=== PATIENT | female | born 1980 | race Caucasian/White ===

== ENCOUNTER 2025-03-13 10:06 | Outpatient (AMB) | payer BC, SELFPAY ==
--- NOTE | 2025-03-13 10:10 | MHC.PC.OV ---
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 She has no acute concerns today. CV: Blood pressure today in the office is 112/72. Checks blood pressure at home and it is about the same. She is on lisinopril 10 mg. No chest pain or shortness on breath. Breast: Following in April 2025 for mammos. Following with breast center [facility] Interpreter: follows with [facility]. Sees Dr. Weber routinely 12/25 annual. [facility], [facility] Medical History (Updated 01/04/25 @ 12:49 by Flavia Olivares) H/O mammogram Dyslipidemia Hypertension Surgical History (Updated 01/04/25 @ 12:49 by Flavia Olivares) History of knee surgery History of carpal tunnel release Hx of tonsillectomy Family History (System 01/04/25 @ 12:49 by Flavia Olivares) Father Polycythemia Brother Asthma Thyroid cancer Social History (System 01/04/25 @ 12:49 by Flavia Olivares) Housing: House Alcohol intake: current Patient Tobacco Use Status: Never used Tobacco e-Cigarette/Vaping Use: Never Used Second Hand Smoke Exposure: Yes (past) service: No Current occupational status: employed 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 How often do you have a drink containing alcohol?: 2-3 times a week 2. How many drinks containing alcohol do you have on a typical day when you are drinking?: 1 or 2 3. How often do you have six or more drinks on one occasion?: Never Total Score: 3 KARTHIKEYAN-7 AMB Questionnaire KARTHIKEYAN-7 Date KARTHIKEYAN - 7 assessed: 09/05/24 Source: Developed by Drs. Kirk Gunter, Patti Vázquez, Elijah Toledo and colleagues, with an educational bonilla from [employer]. Physical exam (Primary Care) Vital Signs: Last Vital Signs Pulse 82 03/13/25 10:16 Resp 14 03/13/25 10:16 BP 112/72 03/13/25 10:16 Pulse Ox 98 03/13/25 10:16 Oxygen Delivery Method Room Air 03/13/25 10:16 Oxygen Flow Rate 168.4 03/13/25 10:16 BMI result Body Mass Index 28.9 Tobacco/Smoking Status: Tobacco use Status Tobacco use date assessed 03/13/25 03/13/25 10:18 Patient Tobacco Use Status Never used Tobacco 03/13/25 10:18 e-Cigarette/Vaping Use Never Used 03/13/25 10:18 Thrive Assessment: Date of Thrive Assessment Date Thrive assessed 09/05/24 03/13/25 10:18 Const Orientation/consciousness: patient oriented x3 HENMT Ears: hearing grossly normal bilaterally Neck Thyroid: Thyroid normal Lymphatic: no lymphadenopathy noted Resp Auscultation: clear to auscultation bilaterally Cardio Rate: regular rate Rhythm: regular rhythm Heart sounds: S1 normal heart sound present and S2 normal heart sound present GI Inspection: Yes normal to inspection Palpation (GI): Soft to palpation and Other GI palpation findings present (nontender, no cva tenderness) Auscultation: normoactive bowel sounds Rectal Exam - Female: deferred Skin General skin exam: no rashes or lesions noted Neuro General: patient oriented x3, gait normal and no focal motor deficits Coding Level of Care Code Est Pt Level 4 (27441) Complex EM visit Add On G2211 Diagnoses Primary hypertension I10 Hypertension type: primary hypertension Dyslipidemia E78.5 Assessment & Plan Assessment & Plan (1) Hypertension: Code(s): I10 - Essential (primary) hypertension Category: Medical Qualifiers: Hypertension type: primary hypertension Qualified Code(s): I10 - Essential (primary) hypertension Plan: wnl continue lisinopril (2) Dyslipidemia: Code(s): E78.5 - Hyperlipidemia, unspecified Category: Medical Plan: will monitor labs ordered Orders: Orders Comprehensive [place]. Panel Fast Today E78.5 - Hyperlipidemia, unspecified, I10 - Essential (primary) hypertension TSH reflex Free T4 Today E78.5 - Hyperlipidemia, unspecified, I10 - Essential (primary) hypertension Microalbumin, Random (w Creat) Today E78.5 - Hyperlipidemia, unspecified, I10 - Essential (primary) hypertension Complete Blood Count Auto Diff Today E78.5 - Hyperlipidemia, unspecified, I10 - Essential (primary) hypertension Lipid Panel Today E78.5 - Hyperlipidemia, unspecified, I10 - Essential (primary) hypertension
[2025-03-13 10:16] VITALS: BP 112/72; PULSE 82; RESP 14; O2SAT 98; BMI 28.9
== END 2025-03-13 10:53 | disposition home or self-care (01) ==
LOC: HO.HMCFM 10:06
PROVIDERS: PCP Physician Assistant; Visit Provider Physician Assistant
DX: I10 Essential (primary) hypertension (principal); E78.5 Hyperlipidemia, unspecified

== ENCOUNTER → 2025-03-13 10:06 | Outpatient (BNVA) | payer BC, SELFPAY | PROVIDERS: PCP Physician Assistant; Visit Provider Physician Assistant | DX: Z13.89 Encounter for screening for other disorder (principal) ==

== ENCOUNTER 2025-07-03 07:29 | Outpatient (REF) | payer BC, SELFPAY ==
[2025-07-03 11:25] LABS: MANUAL DIFF FLAG NO
[2025-07-03 11:38] LABS: Hematocrit 44.5 % (37.0-47.0); Hemoglobin 14.7 g/dl (12.0-16.0); Imm Gran Abs Auto 0.02 X10*3/uL (0.00-0.03); Imm Gran Pct Auto 0.3 % (0.0-0.4); Lymphocytes Absolute Auto 2.1 X10*3/uL (1.2-4.9); Mean Corpuscular HGB Conc 33.0 g/dl (31.0-35.0); Mean Corpuscular Hemoglobin 29.6 pg (27.0-33.0); Mean Corpuscular Volume 89.5 fL (80.0-98.0); NRBC Abs Auto 0.000 X10*3/uL (0.0-0.012); NRBC Pct Auto 0.0 /100WBC (0.0-0.2); Platelet Count 320 X10*3/uL (160-400); Red Blood Count 4.97 X10*6/uL (4.20-5.50); White Blood Count 7.0 X10*3/uL (4.8-10.8)
[2025-07-03 12:07] LABS: Alanine Aminotransferase 23 U/L (0-31); Albumin Level 4.4 g/dL (3.5-5.0); Alkaline Phosphatase 68 U/L (39-117); Anion Gap 11 (12-20); Aspartate Amino Transferase 24 U/L (5-31); Blood Urea Nitrogen 11 mg/dL (9-16); Calcium 8.9 mg/dL (8.4-10.2); Carbon Dioxide 25 mmol/L (22-29); Chloride 106 mmol/L (96-108); Cholesterol 235 mg/dL (<200); Estimated Glomerular Filt Rate > 60; HDL Cholesterol 58 mg/dL (>40); Potassium 3.9 mmol/L (3.3-5.1); Sodium 138 mmol/L (135-145); Total Protein 7.5 g/dL (6.5-8.0); Triglycerides 141 mg/dL (<150)
[2025-07-03 12:24] LABS: Microalbum/Creatinine Ratio Ur 3.6 ug/mg cr (<30)
== END 2025-07-03 07:30 | disposition home or self-care (01) ==
LOC: HO.WFDLDS 07:29
PROVIDERS: Visit Provider Physician Assistant
DX: I10 Essential (primary) hypertension (principal); E78.5 Hyperlipidemia, unspecified
CPT/HCPCS: 36415; 80053; 80061; 82043; 82570; 84443; 85025

== ENCOUNTER 2025-08-07 13:25 | Outpatient (AMB) | payer BC, SELFPAY ==
--- NOTE | 2025-08-07 13:42 | MHC.PC.OV ---
Vital Signs 08/07/25 13:43 Height 5 ft 4 in Weight 173 lb 4 oz BMI 29.7 BP 148/92 H Blood Pressure Location Rt brachial Position Sitting Respiration 14 Pulse 93 Pulse Source Pulse Oximeter Temp 98.4 F Temp Source Oral Pulse Oximetry (%) 98 Oxygen Delivery Method Room Air Intake Visit Reasons: GLP-1 injection Intake Note: Discuss GLP-1 injection. Stopped Lisinopril end of february, blood pressure was good according to pt. 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 Her sleep medicine doctor told her to lose. She has been doing low carb, calorie restriction and exercise. She has met with a driver trainer and is trying to follow the program. Unable to lose weight after 1 year of trying. Phentermine would be contraindicated due to hx of htn. In the past on buproprion and did not tolerate this. It worsened anxiety. [facility] Medical History (Updated 08/09/25 @ 10:09 by Francisca Matute PA-C) H/O mammogram Dyslipidemia Hypertension Surgical History (Updated 01/04/25 @ 12:49 by Flavia Olivares) History of knee surgery History of carpal tunnel release Hx of tonsillectomy Family History (System 01/04/25 @ 12:49 by Flavia Olivares) Father Polycythemia Brother Asthma Thyroid cancer Social History (System 01/04/25 @ 12:49 by Flavia Olivares) Housing: House Alcohol intake: current Patient Tobacco Use Status: Never used Tobacco e-Cigarette/Vaping Use: Never Used Second Hand Smoke Exposure: Yes (past) service: No Current occupational status: employed 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 Current occupational exposures/hazards: No Cognitive needs: No Hearing needs: No Vision needs: Yes (reading glasses) Questionnaire PHQ-9 Over the last 2 weeks, how often have you been bothered by any of the following problems? 1. Little interest or pleasure in doing things: not at all 2. Feeling down, depressed, or hopeless: not at all 3. Trouble falling or staying asleep, or sleeping too much: several days 4. Feeling tired or having little energy: several days 5. Poor appetite or overeating: not at all 6. Feeling bad about yourself - or that you are a failure or have let yourself or your family down: not at all 7. Trouble concentrating on things, such as reading the newspaper or watching television: not at all 8. Moving or speaking so slowly that other people could have noticed. Or the opposite - being so fidgety or restless that you have been moving around a lot more than usual: not at all 9. Thoughts that you would be better off or of hurting yourself in some way: not at all Total score: 2 Source: Developed by Drs. Kirk Gunter, Patti Vázquez, Elijah Toledo and colleagues, with an educational bonilla from [employer]. Thrive Questionnaire Date Thrive assessed: 07/31/25 I am a: Patient What is your living situation today?: I have a steady place to live Within the past 12 months, did the food you bought not last and you didn't have the money to get more?: Never true Within the past 12 months, did you worry whether your food would run out before you got money to buy more?: Never true Do you have trouble paying for medicines?: No Do you have trouble getting transportation to medical appointments?: No Do you have trouble paying your heating and electricity bill?: No Do you have trouble taking care of your child, family member or friend?: No Do you have trouble with day-to-day activities such as bathing, preparing meals, shopping, managing finances, etc.?: No Are you currently unemployed and looking for a job?: No Are you interested in more education?: No Please select the resources that you would like help with: None Currently or been in a relationship where the following occur: No concerns reported THRIVE Score: 0 AUDIT C Alcohol Use Questionnaire (AUDIT-C) 1. How often do you have a drink containing alcohol?: 2-4 times a month 2. How many drinks containing alcohol do you have on a typical day when you are drinking?: 3 or 4 3. How often do you have six or more drinks on one occasion?: Less than monthly Total Score: 4 KARTHIKEYAN-7 AMB Questionnaire KARTHIKEYAN-7 Date KARTHIKEYAN - 7 assessed: 09/05/24 Feeling nervous, anxious, or on edge: 0 = Not at all Not being able to stop or control worryin = Not at all Worrying too much about different things: 0 = Not at all Trouble relaxin = Not at all Being so restless that it is hard to sit still: 0 = Not at all Becoming easily annoyed or irritable: 0 = Not at all Feeling afraid as if something awful might happen: 0 = Not at all Total KARTHIKEYAN-7 score (0-4 normal; 5-9 mild; 10-14 moderate; 15-21 severe): 0 Source: Developed by Drs. Kirk Gunter, Patti Vázquez, Elijah Toledo and colleagues, with an educational bonilla from [employer]. Physical exam (Primary Care) Vital Signs: Last Vital Signs Temp 98.4 F 08/07/25 13:43 Pulse 93 08/07/25 13:43 Resp 14 08/07/25 13:43 BP 148/92 H 08/07/25 13:43 Pulse Ox 98 08/07/25 13:43 Oxygen Delivery Method Room Air 08/07/25 13:43 BMI result Body Mass Index 29.7 Tobacco/Smoking Status: Tobacco use Status Tobacco use date assessed 03/13/25 08/07/25 13:48 Patient Tobacco Use Status Never used Tobacco 08/07/25 13:48 e-Cigarette/Vaping Use Never Used 08/07/25 13:48 PHQ-9: PHQ-9 Score PHQ-9: Total score 2 08/07/25 13:50 Thrive Assessment: Date of Thrive Assessment Date Thrive assessed 07/31/25 08/07/25 13:48 Currently or been in a relationship where the following occur: No concerns reported Const Orientation/consciousness: patient oriented x3 HENMT Ears: hearing grossly normal bilaterally Neck Thyroid: Thyroid normal Lymphatic: no lymphadenopathy noted Resp Auscultation: clear to auscultation bilaterally Cardio Rate: regular rate Rhythm: regular rhythm Heart sounds: S1 normal heart sound present and S2 normal heart sound present GI Inspection: Yes normal to inspection Palpation (GI): Soft to palpation and Other GI palpation findings present (nontender, no cva tenderness) Auscultation: normoactive bowel sounds Rectal Exam - Female: deferred Skin General skin exam: no rashes or lesions noted Neuro General: patient oriented x3, gait normal and no focal motor deficits Coding Level of Care Code Est Pt Level 4 (49953) Complex EM visit Add On G2211 Diagnoses Primary hypertension I10 Hypertension type: primary hypertension Overweight (BMI 25.0-29.9) E66.3 EDWARD (obstructive sleep apnea) G47.33 Dyslipidemia E78.5 Assessment & Plan Assessment & Plan (1) Hypertension: Code(s): I10 - Essential (primary) hypertension Category: Medical Qualifiers: Hypertension type: primary hypertension Qualified Code(s): I10 - Essential (primary) hypertension Plan: BP a little elevated today but has been off of lisinopril. She states at home they are normal. We will bring her in few weeks to recheck this. (2) Overweight (BMI 25.0-29.9): Code(s): E66.3 - Overweight Category: Medical Plan: Zepbound ordered as she does have obstructive sleep apnea. (3) EDWARD (obstructive sleep apnea): Code(s): G47.33 - Obstructive sleep apnea (adult) (pediatric) Category: Medical Plan: Recommendation from sleep medicine was to lose weight. Ordered GLP 1. (4) Dyslipidemia: Code(s): E78.5 - Hyperlipidemia, unspecified Category: Medical Plan: Does not want medication at this point. Prefers to try diet and exercise. Medications: New tirzepatide (weight loss) (Zepbound) 2.5 mg (0.5 mL) subcut QWEEK 2 mL 3RF
[2025-08-07 13:43] VITALS: BP 148/92; PULSE 93; RESP 14; TEMP 36.9; O2SAT 98; BMI 29.7
== END 2025-08-07 14:09 | disposition home or self-care (01) ==
LOC: HO.HMCFM 13:25
PROVIDERS: PCP Physician Assistant; Visit Provider Physician Assistant
DX: I10 Essential (primary) hypertension (principal); E66.3 Overweight; G47.33 Obstructive sleep apnea (adult) (pediatric); E78.5 Hyperlipidemia, unspecified

== ENCOUNTER 2025-09-12 15:12 | Outpatient (AMB) | payer BC, SELFPAY ==
[2025-09-12 15:31] VITALS: BP 104/76; PULSE 79; RESP 12; O2SAT 98; BMI 28.0
--- NOTE | 2025-09-12 15:31 | A.OFFPC_ITS ---
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 Doing very well on zepbound. She is down 10 lb Mammo: 11/29/24- scheduled, following with breast center HIDE PASTER: CHARLEY Weber [facility] Medical History (Updated 08/09/25 @ 10:09 by Francisca Matute PA-C) H/O mammogram Dyslipidemia Hypertension Surgical History (Updated 01/04/25 @ 12:49 by Flavia Olivares) History of knee surgery History of carpal tunnel release Hx of tonsillectomy Family History (System 01/04/25 @ 12:49 by Flavia Olivares) Father Polycythemia Brother Asthma Thyroid cancer Social History (System 01/04/25 @ 12:49 by Flavia Olivares) Housing: House Alcohol intake: current Patient Tobacco Use Status: Never used Tobacco e-Cigarette/Vaping Use: Never Used Second Hand Smoke Exposure: Yes (past) service: No Current occupational status: employed 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 Current occupational exposures/hazards: No Cognitive needs: No Hearing needs: No Vision needs: Yes (reading glasses) Questionnaire Thrive Questionnaire Date Thrive assessed: 07/31/25 I am a: Patient What is your living situation today?: I have a steady place to live Within the past 12 months, did the food you bought not last and you didn't have the money to get more?: Never true Within the past 12 months, did you worry whether your food would run out before you got money to buy more?: Never true Do you have trouble paying for medicines?: No Do you have trouble getting transportation to medical appointments?: No Do you have trouble paying your heating and electricity bill?: No Do you have trouble taking care of your child, family member or friend?: No Do you have trouble with day-to-day activities such as bathing, preparing meals, shopping, managing finances, etc.?: No Are you currently unemployed and looking for a job?: No Are you interested in more education?: No Please select the resources that you would like help with: None Currently or been in a relationship where the following occur: No concerns reported THRIVE Score: 0 KARTHIKEYAN-7 AMB Questionnaire KARTHIKEYAN-7 Date KARTHIKEYAN - 7 assessed: 09/05/24 Source: Developed by Drs. Kirk Gunter, Patti Vázquez, Elijah Toledo and colleagues, with an educational bonilla from [employer]. Physical exam (Primary Care) Vital Signs: Last Vital Signs Pulse 79 09/12/25 15:31 Resp 12 09/12/25 15:31 BP 104/76 09/12/25 15:31 Pulse Ox 98 09/12/25 15:31 Oxygen Delivery Method Room Air 09/12/25 15:31 BMI result Body Mass Index 28.0 Tobacco/Smoking Status: Tobacco use Status Tobacco use date assessed 03/13/25 09/12/25 15:36 Patient Tobacco Use Status Never used Tobacco 09/12/25 15:36 e-Cigarette/Vaping Use Never Used 09/12/25 15:36 Thrive Assessment: Date of Thrive Assessment Date Thrive assessed 07/31/25 09/12/25 15:36 Currently or been in a relationship where the following occur: No concerns reported Const Orientation/consciousness: patient oriented x3 HENMT Ears: hearing grossly normal bilaterally and TM's normal bilaterally General nose exam: No nasal polyps present Face and sinus: Yes sinuses nontender Mouth: Normal oral and palatal mucosa present Eyes Pupils: Equal, round and reactive pupils present EOM: EOMs intact bilaterally Neck Neck: Yes full ROM and Yes no lymphadenopathy Thyroid: Thyroid normal Chest Chest palpation & inspection: normal inspection of the chest Resp Auscultation: clear to auscultation bilaterally Cardio Rate: regular rate Rhythm: regular rhythm Heart sounds: S1 normal heart sound present and S2 normal heart sound present Peripheral pulses: Peripheral pulses 2+ throughout GI Other: Soft, nontender Auscultation: normal bowel sounds Rectal Exam - Female: deferred General: Yes no CVA tenderness Back/Spine/Pelvis Other: Nontender Back: no CVA tenderness Skin General skin exam: no rashes or lesions noted Neuro General: patient oriented x3, gait normal, CN's II-XI intact bilaterally and deep tendon reflexes 2+ bilaterally Cranial nerves: Yes Equal, round and reactive pupils present Motor exam (neuro): 5/5 motor strength present throughout Sensory Exam: double simultaneous stimulation for sensation normal Coordination: [id number] test normal and Romberg test negative Extrem General: Yes normal to inspection and Yes full ROM Psych Affect: normal affect Attitude: cooperative Thought process: Normal thought process present Thought content: Normal thought content present Insight: Good insight present (Psych) Judgement: Good judgement present (Psych) Results Reviewed Results Reviewed: Laboratory Tests 07/03/25 07:32 WBC 7.0 RBC 4.97 Hgb 14.7 Hct 44.5 Plt Count 320 Sodium 138 Potassium 3.9 Chloride 106 Carbon Dioxide 25 Anion Gap 11 L BUN 11 Creatinine 0.68 Estimated GFR > 60 Fasting Glucose 79 Calcium 8.9 D Total Bilirubin 0.6 AST 24 ALT 23 Alkaline Phosphatase 68 Total Protein 7.5 Albumin 4.4 Triglycerides 141 Cholesterol 235 H LDL Cholesterol, Calc 149 H HDL Cholesterol 58 TSH 3.31 Urine Creatinine 247.17 Urine Microalbumin 9.0 Microalb/Creat Ratio 3.6 Coding Level of Care Code Est Pt Prev Care 40-64y(94947) Diagnoses Routine general medical examination at a health care facility Z00.00 Primary hypertension I10 Hypertension type: primary hypertension Dyslipidemia E78.5 Assessment & Plan Assessment & Plan (1) Routine general medical examination at a health care facility: Code(s): Z00.00 - Encounter for general adult medical examination without abnormal findings Plan: Health maintenance reviewed Labs ordered Up-to-date on immunizations Up-to-date on screening (2) Hypertension: Code(s): I10 - Essential (primary) hypertension Category: Medical Qualifiers: Hypertension type: primary hypertension Qualified Code(s): I10 - Essential (primary) hypertension Plan: Resolved (3) Dyslipidemia: Code(s): E78.5 - Hyperlipidemia, unspecified Category: Medical Plan: We will recheck in 6 months Orders: Orders Comprehensive [place]. Panel Fast Today E78.5 - Hyperlipidemia, unspecified, I10 - Essential (primary) hypertension Lipid Panel Today E78.5 - Hyperlipidemia, unspecified, I10 - Essential (primary) hypertension Complete Blood Count Auto Diff Today E78.5 - Hyperlipidemia, unspecified, I10 - Essential (primary) hypertension TSH reflex Free T4 Today E78.5 - Hyperlipidemia, unspecified, I10 - Essential (primary) hypertension Microalbumin, Random (w Creat) Today E78.5 - Hyperlipidemia, unspecified, I10 - Essential (primary) hypertension
== END 2025-09-12 16:03 | disposition home or self-care (01) ==
LOC: HO.HMCFM 15:13
PROVIDERS: PCP Physician Assistant; Visit Provider Physician Assistant
DX: Z00.00 Encounter for general adult medical examination without abnormal findings (principal); I10 Essential (primary) hypertension; E78.5 Hyperlipidemia, unspecified